=== PATIENT | female | born 1965 | race African-American/Black ===

== ENCOUNTER 2017-06-01 17:48 | Emergency (ER) | payer OTHER ==
[~2017-06-01] VITALS: Ht 170.2 cm; Wt 121.0 kg
[~2017-06-01 17:48] MED LIST: ASPI-1159 PO; CLON0.1T PO; GLUXL5 PO; ISOS1TAB PO; LOSA1TAB34 PO; METF500T4 PO; Metoprolol Tartrate PO; SITA25TA3 PO
[2017-06-01 23:02] LABS: BASOPHILS % 0.6 % (0.0-2.0); EOSINOPHILS % 1.8 % (0.0-5.0); HEMATOCRIT. 37.1 % (36.0-48.0); LYMPHOCYTES % 41.6 % (20.0-50.0); MEAN CORPUSCULAR HEMOGLOBIN 23.9 pg (28.0-32.0); MEAN CORPUSCULAR VOLUME 73.8 fL (81.0-99.0); MEAN PLATELET VOLUME 9.2 fl (7.4-10.4); MONOCYTES % 7.9 % (2.0-8.0); NEUTROPHILS % 48.1 % (40.0-76.0); PLATELET 212 x1000/uL (130-400); RED BLOOD CELL COUNT 5.04 mill/uL (4.2-5.4); RED CELL DISTRIBUTION WIDTH 16.6 % (11.6-14.6)
[2017-06-01 23:04] LABS: CHLORIDE 103 mEq/L (98-107)
[2017-06-01 23:08] LABS: PARTIAL THROMBOPLASTIN TIME 23.6 sec (23.4-31.0); PROTHROMBIN TIME 9.9 sec (9.4-11.6)
[2017-06-01 23:11] LABS: CARBON DIOXIDE 27 mEq/L (21-32)
[2017-06-01 23:15] LABS: TROPONIN I < 0.02 ng/mL (0.00-0.04)
[2017-06-02] MEDS ORDERED: INSULIN REGULAR (HUMULIN R) UD 100 UNITS/ML SYR IV ONE (00:45)
[2017-06-02 01:23] LABS: CLARITY URINE CLEAR (CLEAR); COLOR URINE YELLOW (YELLOW); GLUCOSE URINE 3+ (NEGATIVE); KETONES URINE NEGATIVE (NEGATIVE); LEUKOCYTE ESTERASE URINE 1+ (NEGATIVE); NITRITE URINE NEGATIVE (NEGATIVE); OCCULT BLOOD URINE NEGATIVE (NEGATIVE); PROTEIN URINE NEGATIVE (NEGATIVE); SPECIFIC GRAVITY URINE 1.034 (1.005-1.030); UROBILINOGEN URINE 0.2 E.U./dL (0.2-1.0)
[2017-06-02] MEDS ORDERED: INSULIN REGULAR (HUMULIN R) UD 100 UNITS/ML SYR SUBCUT SCH (01:45)
[2017-06-02 03:32] VITALS: BP 135/89
== END 2017-06-02 05:15 | disposition home or self-care (01) ==
LOC: ER 17:48
DX: E11.65 Type 2 diabetes mellitus with hyperglycemia (principal); R07.9 Chest pain, unspecified; E78.00 Pure hypercholesterolemia, unspecified; I10 Essential (primary) hypertension; Z79.82 Long term (current) use of aspirin; Z88.0 Allergy status to penicillin; Z98.890 Other specified postprocedural states
CPT/HCPCS: 36415; 71010; 80053; 81001; 82962; 83690; 84484; 85025; 85610; 85730; 93005; 96372; 99285; J1815

== ENCOUNTER 2017-06-03 11:50 | Emergency (ER) | payer OTHER ==
[~2017-06-03] VITALS: Ht 170.2 cm; Wt 130.0 kg
[2017-06-03] MEDS ORDERED: SODIUM CHLORIDE 0.9% 1,000 ML IV ONE ×2 (13:00)
[2017-06-03] MEDS ORDERED: LORAZEPAM 2MG/ML CPJ IM ONE (13:15)
[2017-06-03 13:17] LABS: BASOPHILS % 0.7 % (0.0-2.0); EOSINOPHILS % 1.3 % (0.0-5.0); HEMATOCRIT. 39.2 % (36.0-48.0); HEMOGLOBIN. 12.7 g/dL (12.0-16.0); LYMPHOCYTES % 45.1 % (20.0-50.0); MEAN CORPUSCULAR VOLUME 74.1 fL (81.0-99.0); MEAN PLATELET VOLUME 8.5 fl (7.4-10.4); MONOCYTES % 7.2 % (2.0-8.0); NEUTROPHILS % 45.7 % (40.0-76.0); PLATELET 219 x1000/uL (130-400); RED BLOOD CELL COUNT 5.29 mill/uL (4.2-5.4); RED CELL DISTRIBUTION WIDTH 16.6 % (11.6-14.6)
[2017-06-03 13:28] LABS: CARBON DIOXIDE 28 mEq/L (21-32); CHLORIDE 103 mEq/L (98-107)
[2017-06-03 18:01] VITALS: BP 155/87
== END 2017-06-03 18:07 | disposition home or self-care (01) ==
LOC: ER 11:50
DX: E11.65 Type 2 diabetes mellitus with hyperglycemia (principal); I10 Essential (primary) hypertension; Z88.0 Allergy status to penicillin; Z79.82 Long term (current) use of aspirin
CPT/HCPCS: 36415; 80053; 82962; 85025; 96360; 96361; 99285; Z7610; J7030

== ENCOUNTER 2018-02-07 11:27 | Emergency (ER) | payer OTHER ==
[~2018-02-07] VITALS: Ht 170.2 cm; Wt 119.0 kg
[2018-02-07 12:31] LABS: BASOPHILS % 0.6 % (0.0-2.0); EOSINOPHILS % 1.2 % (0.0-5.0); HEMATOCRIT. 37.9 % (36.0-48.0); HEMOGLOBIN. 12.4 g/dL (12.0-16.0); LYMPHOCYTES % 29.4 % (20.0-50.0); MEAN CORPUSCULAR HEMOGLOBIN 24.5 pg (28.0-32.0); MEAN CORPUSCULAR VOLUME 74.8 fL (81.0-99.0); MEAN PLATELET VOLUME 8.8 fl (7.4-10.4); MONOCYTES % 7.4 % (2.0-8.0); NEUTROPHILS % 61.4 % (40.0-76.0); PLATELET 230 x1000/uL (130-400); RED BLOOD CELL COUNT 5.06 mill/uL (4.2-5.4)
[2018-02-07 12:36] LABS: CHLORIDE 102 mEq/L (98-107)
[2018-02-07 12:42] LABS: INR 0.9; PARTIAL THROMBOPLASTIN TIME 24.9 sec (23.4-31.0); PROTHROMBIN TIME 9.9 sec (9.4-11.6)
[2018-02-07 16:17] VITALS: BP 168/80
== END 2018-02-07 16:47 | disposition home or self-care (01) ==
LOC: ER 16:25
DX: S80.11XA Contusion of right lower leg, initial encounter (principal); E11.65 Type 2 diabetes mellitus with hyperglycemia; R22.31 Localized swelling, mass and lump, right upper limb; R07.89 Other chest pain; E88.09 Other disorders of plasma-protein metabolism, not elsewhere classified; I11.0 Hypertensive heart disease with heart failure; I50.9 Heart failure, unspecified; Z79.82 Long term (current) use of aspirin; Z79.84 Long term (current) use of oral hypoglycemic drugs; Z98.890 Other specified postprocedural states; X58.XXXA Exposure to other specified factors, initial encounter; Y93.89 Activity, other specified; Y92.098 Other place in other non-institutional residence as the place of occurrence of the external cause
CPT/HCPCS: 36415; 71045; 80053; 81025; 83690; 84484; 85025; 85610; 85730; 93005; 93971; 99285; Z7610

== ENCOUNTER 2018-06-30 09:26 | Emergency (ER) | payer OTHER ==
[~2018-06-30] VITALS: Ht 170.2 cm; Wt 120.0 kg
[~2018-06-30 09:26] MED LIST changes: -METF500T4 PO; +METF500T6 PO
[2018-06-30] MEDS ORDERED: CLONIDINE 0.1MG TABLET PO ONE (10:45)
[2018-06-30] MEDS ORDERED: ACETAMINOPHEN WITH CODEINE 300/30MG TABLET PO ONE (10:45)
[2018-06-30 12:02] VITALS: BP 161/74
== END 2018-06-30 12:03 | disposition home or self-care (01) ==
LOC: ER 09:26
DX: M79.671 Pain in right foot (principal); I11.0 Hypertensive heart disease with heart failure; I50.9 Heart failure, unspecified; E11.9 Type 2 diabetes mellitus without complications; Z98.890 Other specified postprocedural states; Z79.82 Long term (current) use of aspirin; Z79.899 Other long term (current) drug therapy; Z88.0 Allergy status to penicillin
CPT/HCPCS: 73630; 99284; Z7610

== ENCOUNTER 2018-10-04 01:24 | Emergency (ER) | payer OTHER ==
[~2018-10-04] VITALS: Ht 170.2 cm; Wt 119.1 kg
[~2018-10-04 01:24] MED LIST changes: +METF-414 PO; -METF500T6 PO
[2018-10-04 03:02] LABS: HEMATOCRIT 39.4 % (36.0-48.0); HEMOGLOBIN 12.5 g/dL (12.0-16.0); MEAN CORPUSCULAR HEMOGLOBIN 23.6 pg (28.0-32.0); MEAN CORPUSCULAR VOLUME 74.7 fL (81.0-99.0); PLATELET 222 x1000/uL (130-400); RED BLOOD CELL COUNT 5.27 mill/uL (4.2-5.4); RED CELL DISTRIBUTION WIDTH 16.6 % (11.6-14.6)
[2018-10-04 03:06] LABS: CHLORIDE 102 mEq/L (98-107)
[2018-10-04 03:16] LABS: BETA HYDROXYBUTYRATE 0.1 mMol/L (0.0-0.3)
[2018-10-04] MEDS ORDERED: KETOROLAC 60MG/2ML VIAL IM ONE (04:15)
[2018-10-04] MEDS ORDERED: KETOROLAC 30MG/ML VIAL IV ONE (04:45)
[2018-10-04 04:51] VITALS: BP 144/81
== END 2018-10-04 04:53 | disposition home or self-care (01) ==
LOC: ER 01:24
DX: E11.65 Type 2 diabetes mellitus with hyperglycemia (principal); I16.0 Hypertensive urgency; I10 Essential (primary) hypertension; R51 Headache; Z98.890 Other specified postprocedural states; Z79.899 Other long term (current) drug therapy; Z88.0 Allergy status to penicillin
CPT/HCPCS: 36415; 80053; 82010; 82962; 84484; 85027; 93005; 96374; 99284; J1885

== ENCOUNTER 2018-12-13 08:50 | Emergency (ER) | payer OTHER ==
[~2018-12-13] VITALS: Ht 170.2 cm; Wt 117.0 kg
[2018-12-13 08:56] VITALS: BP 159/78
== END 2018-12-13 09:31 | disposition home or self-care (01) ==
LOC: ER 08:50
DX: H92.01 Otalgia, right ear (principal); R07.0 Pain in throat; E11.9 Type 2 diabetes mellitus without complications; I10 Essential (primary) hypertension; Z98.890 Other specified postprocedural states; Z88.0 Allergy status to penicillin; Z79.82 Long term (current) use of aspirin; Z79.899 Other long term (current) drug therapy
CPT/HCPCS: 99283

== ENCOUNTER 2018-12-19 12:56 | Emergency (ER) | payer OTHER ==
[~2018-12-19] VITALS: Ht 170.2 cm; Wt 118.0 kg
[2018-12-19] MEDS ORDERED: ONDANSETRON 4MG ODT PO STA (14:47)
[2018-12-19] MEDS ORDERED: MAGNESIUM/ALUMINUM HYDROXIDE/SIMETHICONE 30ML UDC PO STA (14:47)
[2018-12-19] MEDS ORDERED: FAMOTIDINE 20MG TABLET PO ONE (15:00)
[2018-12-19 15:15] VITALS: BP 146/86
== END 2018-12-19 15:15 | disposition home or self-care (01) ==
LOC: ER 12:56
DX: R13.10 Dysphagia, unspecified (principal); E78.00 Pure hypercholesterolemia, unspecified; E11.9 Type 2 diabetes mellitus without complications; I10 Essential (primary) hypertension; Z88.0 Allergy status to penicillin; Z90.89 Acquired absence of other organs
CPT/HCPCS: 93005; 99284; Q0162

== ENCOUNTER 2019-01-03 08:33 | Emergency (ER) | payer OTHER ==
[~2019-01-03] VITALS: Ht 170.2 cm; Wt 118.0 kg
[2019-01-03] MEDS ORDERED: KETOROLAC 30MG/ML VIAL IV STA (10:39)
[2019-01-03] MEDS ORDERED: VISCOUS LIDOCAINE 2% 15 ML UDC PO STA (10:39)
[2019-01-03] MEDS ORDERED: MAGNESIUM/ALUMINUM HYDROXIDE/SIMETHICONE 30ML UDC PO STA (10:39)
[2019-01-03] MEDS ORDERED: DEXAMETHASONE 10 MG/ML VIAL IV ONE (10:45)
[2019-01-03 10:59] LABS: BASOPHILS % 0.5 % (0.0-2.0); EOSINOPHILS % 1.5 % (0.0-5.0); HEMATOCRIT. 37.6 % (36.0-48.0); HEMOGLOBIN. 12.1 g/dL (12.0-16.0); LYMPHOCYTES % 32.3 % (20.0-50.0); MEAN CORPUSCULAR VOLUME 74.1 fL (81.0-99.0); MEAN PLATELET VOLUME 8.7 fl (7.4-10.4); MONOCYTES % 6.7 % (2.0-8.0); PLATELET 271 x1000/uL (130-400); RED BLOOD CELL COUNT 5.07 mill/uL (4.2-5.4); RED CELL DISTRIBUTION WIDTH 15.8 % (11.6-14.6)
[2019-01-03 11:01] LABS: CHLORIDE 106 mEq/L (98-107)
[2019-01-03 13:57] VITALS: BP 159/87
[2019-01-03] MEDS ORDERED: IOHEXOL-300 100 ML BOTTLE ONE (15:30)
== END 2019-01-03 14:34 | disposition home or self-care (01) ==
LOC: ER 08:33
DX: J02.0 Streptococcal pharyngitis (principal); I10 Essential (primary) hypertension; E11.65 Type 2 diabetes mellitus with hyperglycemia; E78.00 Pure hypercholesterolemia, unspecified; R59.1 Generalized enlarged lymph nodes; Z98.890 Other specified postprocedural states
CPT/HCPCS: 36415; 70491; 80053; 85025; 87430; 96374; 96375; 99284; J1100; J1885; Q9967

== ENCOUNTER 2019-02-01 10:26 | Emergency (ER) | payer OTHER ==
[~2019-02-01] VITALS: Ht 170.2 cm; Wt 118.0 kg
[2019-02-01] MEDS ORDERED: ASPIRIN 81MG TABLET PO ONE (12:00)
[2019-02-01 12:34] LABS: BASOPHILS % 0.5 % (0.0-2.0); EOSINOPHILS % 1.5 % (0.0-5.0); HEMATOCRIT. 35.8 % (36.0-48.0); HEMOGLOBIN. 11.3 g/dL (12.0-16.0); LYMPHOCYTES % 41.1 % (20.0-50.0); MEAN CORPUSCULAR HEMOGLOBIN 23.4 pg (28.0-32.0); MEAN CORPUSCULAR VOLUME 74.4 fL (81.0-99.0); MEAN PLATELET VOLUME 8.7 fl (7.4-10.4); MONOCYTES % 6.7 % (2.0-8.0); NEUTROPHILS % 50.2 % (40.0-76.0); PLATELET 261 x1000/uL (130-400); RED BLOOD CELL COUNT 4.81 mill/uL (4.2-5.4); RED CELL DISTRIBUTION WIDTH 16.5 % (11.6-14.6)
[2019-02-01 12:38] LABS: CHLORIDE 104 mEq/L (98-107)
[2019-02-01] MEDS ORDERED: NITROGLYCERIN 0.4MG TABLET SL SL ONE (13:45)
[2019-02-01 14:59] LABS: CLARITY URINE CLOUDY (CLEAR); COLOR URINE YELLOW (YELLOW); KETONES URINE NEGATIVE (NEGATIVE); LEUKOCYTE ESTERASE URINE 3+ (NEGATIVE); NITRITE URINE POSITIVE (NEGATIVE); OCCULT BLOOD URINE 1+ (NEGATIVE); PROTEIN URINE NEGATIVE (NEGATIVE); SPECIFIC GRAVITY URINE 1.017 (1.005-1.030); UROBILINOGEN URINE 0.2 E.U./dL (0.2-1.0)
[2019-02-01 15:19] LABS: *AMPHETAMINES SCREEN URINE NEGATIVE (NEGATIVE); *BARBITURATES SCREEN URINE NEGATIVE (NEGATIVE); *BENZODIAZEPINES SCREEN URINE NEGATIVE (NEGATIVE); *COCAINE SCREEN URINE NEGATIVE (NEGATIVE)
[2019-02-01 15:20] VITALS: BP 149/83
[2019-02-01 15:20] LABS: CANNABINOID URINE SCREEN NEGATIVE (NEGATIVE); METHADONE URINE SCREEN NEGATIVE (NEGATIVE); OPIATES URINE SCREEN NEGATIVE (NEGATIVE); PHENCYCLIDINE URINE SCREEN NEGATIVE (NEGATIVE)
[2019-02-01] MEDS ORDERED: CEFTRIAXONE 1 G PREMIX 50 ML IV ONE (17:00)
== END 2019-02-01 17:58 | disposition short-term general hospital (02) ==
LOC: ER 10:26 → CANBEDREQ 18:10
DX: R07.89 Other chest pain (principal); N39.0 Urinary tract infection, site not specified; E11.9 Type 2 diabetes mellitus without complications; E78.00 Pure hypercholesterolemia, unspecified; I10 Essential (primary) hypertension; Z98.890 Other specified postprocedural states; Z79.82 Long term (current) use of aspirin; Z79.899 Other long term (current) drug therapy; Z88.0 Allergy status to penicillin
CPT/HCPCS: 36415; 71045; 80053; 80305; 81003; 82962; 83880; 84484; 85025; 87077; 87086; 87186; 93005; 96374; 99285; J0696

== ENCOUNTER 2019-03-29 17:47 | Emergency (ER) | payer OTHER ==
[~2019-03-29] VITALS: Ht 170.2 cm; Wt 117.0 kg
[~2019-03-29 17:47] MED LIST changes: -ASPI-1159 PO; +ASPI-1393 PO
[2019-03-29] MEDS ORDERED: ACETAMINOPHEN 325MG TABLET PO ONE (18:45)
[2019-03-29 19:01] LABS: BASOPHILS % 0.7 % (0.0-2.0); EOSINOPHILS % 2.7 % (0.0-5.0); HEMATOCRIT. 38.2 % (36.0-48.0); HEMOGLOBIN. 12.2 g/dL (12.0-16.0); LYMPHOCYTES % 39.7 % (20.0-50.0); MEAN CORPUSCULAR HEMOGLOBIN 23.8 pg (28.0-32.0); MEAN CORPUSCULAR VOLUME 74.9 fL (81.0-99.0); MEAN PLATELET VOLUME 8.5 fl (7.4-10.4); MONOCYTES % 8.1 % (2.0-8.0); NEUTROPHILS % 48.8 % (40.0-76.0); PLATELET 244 x1000/uL (130-400); RED CELL DISTRIBUTION WIDTH 16.2 % (11.6-14.6)
[2019-03-29 19:06] LABS: CHLORIDE 103 mEq/L (98-107); INR 0.9; PROTHROMBIN TIME 9.6 sec (9.6-11.0)
[2019-03-29 19:14] LABS: CREATINE KINASE 91 IU/L (26-192)
[2019-03-29 19:26] LABS: CLARITY URINE TURBID (CLEAR); COLOR URINE YELLOW (YELLOW); KETONES URINE NEGATIVE (NEGATIVE); LEUKOCYTE ESTERASE URINE 3+ (NEGATIVE); NITRITE URINE POSITIVE (NEGATIVE); OCCULT BLOOD URINE 1+ (NEGATIVE); PROTEIN URINE NEGATIVE (NEGATIVE); UROBILINOGEN URINE 0.2 E.U./dL (0.2-1.0)
[2019-03-29 21:08] VITALS: BP 176/89
== END 2019-03-29 21:10 | disposition home or self-care (01) ==
LOC: ER 17:47
DX: N39.0 Urinary tract infection, site not specified (principal); R59.0 Localized enlarged lymph nodes; M79.605 Pain in left leg; E11.65 Type 2 diabetes mellitus with hyperglycemia; I10 Essential (primary) hypertension; E78.00 Pure hypercholesterolemia, unspecified; I20.9 Angina pectoris, unspecified; Z88.0 Allergy status to penicillin; Z79.82 Long term (current) use of aspirin
CPT/HCPCS: 36415; 82550; 84443; 93005; 93971; 99284

== ENCOUNTER 2019-05-17 06:46 | Emergency (ER) | payer OTHER ==
[~2019-05-17] VITALS: Ht 170.2 cm; Wt 116.0 kg
[2019-05-17] MEDS ORDERED: HYDRALAZINE 20MG/ML VIAL IV ONE (08:15)
[2019-05-17 08:40] LABS: BASOPHILS % 1.5 % (0.0-2.0); EOSINOPHILS % 2.7 % (0.0-5.0); HEMATOCRIT. 37.1 % (36.0-48.0); HEMOGLOBIN. 11.9 g/dL (12.0-16.0); MEAN CORPUSCULAR HEMOGLOBIN 24.2 pg (28.0-32.0); MEAN CORPUSCULAR VOLUME 75.4 fL (81.0-99.0); MONOCYTES % 8.3 % (2.0-8.0); NEUTROPHILS % 49.5 % (40.0-76.0); PLATELET 251 x1000/uL (130-400); RED BLOOD CELL COUNT 4.92 mill/uL (4.2-5.4); RED CELL DISTRIBUTION WIDTH 16.6 % (11.6-14.6)
[2019-05-17 08:44] LABS: CHLORIDE 105 mEq/L (98-107)
[2019-05-17 11:30] VITALS: BP 196/88
[2019-05-17] MEDS ORDERED: IOHEXOL-350 100 ML BOTTLE ONE (12:05)
== END 2019-05-17 11:30 | disposition short-term general hospital (02) ==
LOC: ER 06:46
DX: R42 Dizziness and giddiness (principal); E11.9 Type 2 diabetes mellitus without complications; I10 Essential (primary) hypertension; Z88.0 Allergy status to penicillin; Z79.82 Long term (current) use of aspirin
CPT/HCPCS: 36415; 70496; 70498; 71045; 80053; 82962; 84484; 85025; 93005; 96374; 99285; J0360; Q9967

== ENCOUNTER 2019-10-12 13:27 | Emergency (ER) | payer OTHER ==
[~2019-10-12] VITALS: Ht 170.2 cm; Wt 109.0 kg
[~2019-10-12 13:27] MED LIST changes: -ASPI-1393 PO; +ASPI-1497 PO
[2019-10-12] MEDS ORDERED: SODIUM CHLORIDE 0.9% 1,000 ML IV ONE ×2 (16:37)
[2019-10-12] MEDS ORDERED: PANT40TA4 PO (16:39)
[2019-10-12] MEDS ORDERED: CRES10 PO (16:39)
[2019-10-12] MEDS ORDERED: OXYB5TAB17 PO (16:39)
[2019-10-12] MEDS ORDERED: NIFE-33 PO (16:43)
[2019-10-12] MEDS ORDERED: CLON-457 PO (16:43)
[2019-10-12] MEDS ORDERED: METO-396 PO (16:43)
[2019-10-12] MEDS ORDERED: METF-815 PO (16:43)
[2019-10-12] MEDS ORDERED: INSULIN REGULAR (HUMULIN R) 300UNITS/3ML SUBCUT ONE ×2 (16:45→18:30)
[2019-10-12 17:03] LABS: BASOPHILS % 0.5 % (0.0-2.0); EOSINOPHILS % 1.3 % (0.0-5.0); HEMATOCRIT. 38.9 % (36.0-48.0); HEMOGLOBIN. 12.6 g/dL (12.0-16.0); LYMPHOCYTES % 40.5 % (20.0-50.0); MEAN CORPUSCULAR HEMOGLOBIN 24.2 pg (28.0-32.0); MEAN CORPUSCULAR VOLUME 74.4 fL (81.0-99.0); MEAN PLATELET VOLUME 8.5 fl (7.4-10.4); MONOCYTES % 6.9 % (2.0-8.0); NEUTROPHILS % 50.8 % (40.0-76.0); PLATELET 248 x1000/uL (130-400); RED BLOOD CELL COUNT 5.23 mill/uL (4.2-5.4); RED CELL DISTRIBUTION WIDTH 15.8 % (11.6-14.6)
[2019-10-12 17:05] LABS: CLARITY URINE CLOUDY (CLEAR); COLOR URINE YELLOW (YELLOW); KETONES URINE NEGATIVE (NEGATIVE); LEUKOCYTE ESTERASE URINE NEGATIVE (NEGATIVE); NITRITE URINE NEGATIVE (NEGATIVE); OCCULT BLOOD URINE NEGATIVE (NEGATIVE); PROTEIN URINE NEGATIVE (NEGATIVE); SPECIFIC GRAVITY URINE 1.037 (1.005-1.030); UROBILINOGEN URINE 0.2 E.U./dL (0.2-1.0)
[2019-10-12 17:06] LABS: CHLORIDE 102 mEq/L (98-107)
[2019-10-12 17:16] LABS: BETA HYDROXYBUTYRATE 0.1 mMol/L (0.0-0.3)
[2019-10-12 20:30] VITALS: BP 138/80
== END 2019-10-12 20:40 | disposition home or self-care (01) ==
LOC: ER 13:27
DX: E11.65 Type 2 diabetes mellitus with hyperglycemia (principal); N39.0 Urinary tract infection, site not specified; B37.9 Candidiasis, unspecified; I10 Essential (primary) hypertension; E78.00 Pure hypercholesterolemia, unspecified; Z79.4 Long term (current) use of insulin; Z88.0 Allergy status to penicillin; Z79.82 Long term (current) use of aspirin
CPT/HCPCS: 36415; 80053; 81003; 82010; 82962; 85025; 87086; 96360; 96361; 96372; 99283; J1815; J7030

== ENCOUNTER 2021-05-02 09:42 | Emergency (ER) | payer OTHER ==
[~2021-05-02] VITALS: Ht 170.2 cm; Wt 100.0 kg
[~2021-05-02 09:42] MED LIST changes: +CLON-457 PO; +CRES10 PO; +METF-873 PO; +METO-396 PO; +NIFE-33 PO; +OXYB5TAB17 PO; +PANT40TA51 PO
[2021-05-02] MEDS ORDERED: AZIT250T12 MT (13:08)
[2021-05-02] MEDS ORDERED: ALBU2TAB4 PO (13:08)
[2021-05-02] MEDS ORDERED: P20 MT (13:08)
[2021-05-02 13:44] VITALS: BP 138/70
== END 2021-05-02 13:48 | disposition home or self-care (01) ==
LOC: ER 09:42
DX: U07.1 COVID-19 (principal); J12.82 Pneumonia due to coronavirus disease 2019; E11.9 Type 2 diabetes mellitus without complications; E78.00 Pure hypercholesterolemia, unspecified; I10 Essential (primary) hypertension; Z98.890 Other specified postprocedural states; Z79.899 Other long term (current) drug therapy; Z88.0 Allergy status to penicillin
CPT/HCPCS: 71045; 82962; 99283

== ENCOUNTER 2021-05-06 09:44 | Emergency (ER) | payer OTHER ==
[~2021-05-06] VITALS: Ht 170.2 cm; Wt 100.0 kg
[~2021-05-06 09:44] MED LIST changes: +ALBU2TAB4 PO; +AZIT250T12 MT; +P20 MT
[2021-05-06 10:27] VITALS: BP 136/80
[2021-05-06] MEDS ORDERED: IBUP-2029 MT (10:57)
[2021-05-06] MEDS ORDERED: BENZ-16 MT (10:58)
== END 2021-05-06 11:08 | disposition home or self-care (01) ==
LOC: ER 09:44
DX: R06.02 Shortness of breath (principal); I10 Essential (primary) hypertension; E11.9 Type 2 diabetes mellitus without complications; E78.00 Pure hypercholesterolemia, unspecified; Z88.0 Allergy status to penicillin; Z79.899 Other long term (current) drug therapy; Z98.890 Other specified postprocedural states
CPT/HCPCS: 71045; 93005; 99283; Z7610

== ENCOUNTER 2021-05-16 10:02 | Emergency (ER) | payer OTHER ==
[~2021-05-16] VITALS: Ht 170.2 cm; Wt 100.0 kg
[~2021-05-16 10:02] MED LIST changes: +BENZ-16 MT; +IBUP-2029 MT
[2021-05-16 10:32] VITALS: BP 153/83
== END 2021-05-16 14:44 | disposition home or self-care (01) ==
LOC: ER 10:02
DX: R43.9 Unspecified disturbances of smell and taste (principal); E11.9 Type 2 diabetes mellitus without complications; E78.00 Pure hypercholesterolemia, unspecified; I10 Essential (primary) hypertension; Z88.0 Allergy status to penicillin; Z79.899 Other long term (current) drug therapy; Z98.890 Other specified postprocedural states; Z86.16 Personal history of COVID-19
CPT/HCPCS: 71045; 99283

== ENCOUNTER 2021-10-19 18:37 | Emergency (ER) | payer OTHER ==
[~2021-10-19] VITALS: Ht 170.2 cm; Wt 100.0 kg
[2021-10-19 22:42] LABS: BASOPHILS % 0.6 % (0.0-2.0); EOSINOPHILS % 1.1 % (0.0-5.0); HEMATOCRIT. 42.3 % (36.0-48.0); HEMOGLOBIN. 13.4 g/dL (12.0-16.0); LYMPHOCYTES % 39.2 % (20.0-50.0); MEAN CORPUSCULAR VOLUME 72.8 fL (81.0-99.0); MONOCYTES % 5.8 % (2.0-8.0); NEUTROPHILS % 53.3 % (40.0-76.0); PLATELET 225 x1000/uL (130-400); RED BLOOD CELL COUNT 5.81 mill/uL (4.2-5.4); RED CELL DISTRIBUTION WIDTH 15.8 % (11.6-14.6)
[2021-10-19 22:48] LABS: CHLORIDE 101 mEq/L (98-107)
[2021-10-19 22:58] LABS: BETA HYDROXYBUTYRATE 0.2 mMol/L (0.0-0.3)
[2021-10-19] MEDS ORDERED: INSULIN LISPRO 100 UNITS/ML SUBCUT NR (23:15)
[2021-10-20 01:29] LABS: CLARITY URINE CLOUDY (CLEAR); COLOR URINE YELLOW (YELLOW); KETONES URINE TRACE (NEGATIVE); LEUKOCYTE ESTERASE URINE NEGATIVE (NEGATIVE); NITRITE URINE NEGATIVE (NEGATIVE); OCCULT BLOOD URINE NEGATIVE (NEGATIVE); PROTEIN URINE TRACE (NEGATIVE); SPECIFIC GRAVITY URINE 1.034 (1.005-1.030); UROBILINOGEN URINE 0.2 E.U./dL (0.2-1.0)
[2021-10-20] MEDS ORDERED: METF-873 MT (02:04)
[2021-10-20 02:21] VITALS: BP 176/81
== END 2021-10-20 02:30 | disposition home or self-care (01) ==
LOC: ER 18:37
DX: E11.65 Type 2 diabetes mellitus with hyperglycemia (principal); I10 Essential (primary) hypertension; E78.00 Pure hypercholesterolemia, unspecified; Z98.890 Other specified postprocedural states; Z79.84 Long term (current) use of oral hypoglycemic drugs; Z79.82 Long term (current) use of aspirin; Z88.0 Allergy status to penicillin
CPT/HCPCS: 36415; 80053; 81003; 82010; 82962; 83690; 85025; 87086; 96372; 99283; J1815

== ENCOUNTER 2022-02-02 20:14 | Emergency (ER) | payer OTHER ==
[~2022-02-02] VITALS: Ht 170.2 cm; Wt 98.0 kg
[~2022-02-02 20:14] MED LIST changes: +METF-873 MT
[2022-02-02] MEDS ORDERED: ASPIRIN 81MG TABLET PO ONE (21:15)
[2022-02-02] MEDS ORDERED: NITROGLYCERIN 0.4MG TABLET SL SL PRN (21:15)
[2022-02-02 22:35] LABS: BASOPHILS % 0.6 % (0.0-2.0); EOSINOPHILS % 1.1 % (0.0-5.0); HEMATOCRIT. 36.9 % (36.0-48.0); LYMPHOCYTES % 30.9 % (20.0-50.0); MEAN PLATELET VOLUME 8.4 fl (7.4-10.4); NEUTROPHILS % 61.4 % (40.0-76.0); PLATELET 232 x1000/uL (130-400); RED BLOOD CELL COUNT 4.98 mill/uL (4.2-5.4); RED CELL DISTRIBUTION WIDTH 16.2 % (11.6-14.6)
[2022-02-02 22:46] LABS: CHLORIDE 109 mEq/L (98-107)
[2022-02-02] MEDS ORDERED: KETOROLAC 30MG/ML VIAL IV ONE (23:15)
[2022-02-02] MEDS ORDERED: ASPIRIN 325MG TABLET PO SCH (23:45)
[2022-02-03] MEDS ORDERED: IBUP-2029 MT (02:27)
[2022-02-03] MEDS ORDERED: BACL-141 MT (02:27)
[2022-02-03 02:30] VITALS: BP 146/82
== END 2022-02-03 02:56 | disposition home or self-care (01) ==
LOC: ER 20:14
DX: S90.32XA Contusion of left foot, initial encounter (principal); M94.0 Chondrocostal junction syndrome [Tietze]; E78.00 Pure hypercholesterolemia, unspecified; E11.9 Type 2 diabetes mellitus without complications; Z88.6 Allergy status to analgesic agent; Z79.899 Other long term (current) drug therapy; Z88.0 Allergy status to penicillin; Z98.890 Other specified postprocedural states; X58.XXXA Exposure to other specified factors, initial encounter; Y93.89 Activity, other specified; Y92.89 Other specified places as the place of occurrence of the external cause; Y99.8 Other external cause status
CPT/HCPCS: 36415; 71045; 73630; 80053; 83880; 84484; 85025; 93005; 99285; J1885

== ENCOUNTER 2022-09-01 11:34 | Emergency (ER) | payer MEDICAID, OTHER ==
[~2022-09-01] VITALS: Ht 170.2 cm; Wt 93.0 kg
[~2022-09-01 11:34] MED LIST changes: +BACL-141 MT; -ISOS1TAB PO; +ISOS1TAB2 PO
[2022-09-01 11:44] VITALS: BP 166/84
== END 2022-09-01 17:11 | disposition left against medical advice (07) ==
LOC: ER 11:34
DX: Z53.21 Procedure and treatment not carried out due to patient leaving prior to being seen by health care provider (principal); I49.9 Cardiac arrhythmia, unspecified
CPT/HCPCS: 82962; 93005

== ENCOUNTER 2023-04-09 09:06 | Emergency (ER) | payer MEDICAID, OTHER ==
[~2023-04-09] VITALS: Ht 170.2 cm; Wt 97.8 kg
[~2023-04-09 09:06] MED LIST changes: +ALBU2TAB17 PO; -ALBU2TAB4 PO
[2023-04-09] MEDS ORDERED: IBUPROFEN 600MG TABLET PO NR (10:30)
[2023-04-09] MEDS ORDERED: ACET-2708 MT (10:32)
[2023-04-09 11:23] VITALS: BP 164/72; PULSE 58; RESP 18; TEMP 98.4
== END 2023-04-09 11:25 | disposition home or self-care (01) ==
LOC: ER 09:06
DX: S92.911A Unspecified fracture of right toe(s), initial encounter for closed fracture (principal); I10 Essential (primary) hypertension; E11.9 Type 2 diabetes mellitus without complications; E78.00 Pure hypercholesterolemia, unspecified; Z88.0 Allergy status to penicillin; Z79.899 Other long term (current) drug therapy; Z98.890 Other specified postprocedural states; W23.0XXA Caught, crushed, jammed, or pinched between moving objects, initial encounter; Y93.89 Activity, other specified; Y92.89 Other specified places as the place of occurrence of the external cause; Y99.8 Other external cause status
CPT/HCPCS: 73630; 81025; 99283

== ENCOUNTER 2023-12-06 20:57 | Emergency (ER) | payer MEDICAID ==
[~2023-12-06] VITALS: Ht 170.2 cm; Wt 93.0 kg
[~2023-12-06 20:57] MED LIST changes: +ACET-2708 MT; -CLON-457 PO; +CLON-493 PO; +EMPA10TA PO; -IBUP-2029 MT; +LEVO750T68 PO; -METF-873 MT; +METR-167 MT; +MIRA25TA PO; +OXYB-52 PO; -OXYB5TAB17 PO; -P20 MT
[2023-12-06 21:16] VITALS: TEMP 98.3; O2SAT 99
[2023-12-07] MEDS ORDERED: LIDO700A15 TP (00:19)
[2023-12-07] MEDS ORDERED: NAPR-1176 MT (00:19)
[2023-12-07] MEDS: ACETAMINOPHEN 325MG TABLET PO ONE (00:25)
[2023-12-07 00:40] VITALS: BP 107/61; PULSE 68; RESP 16
[2023-12-07] MEDS: KETOROLAC 15MG/ML VIAL IM ONE (00:40)
== END 2023-12-07 03:57 | disposition home or self-care (01) ==
LOC: ER 20:57
DX: I80.3 Phlebitis and thrombophlebitis of lower extremities, unspecified (principal); E11.9 Type 2 diabetes mellitus without complications; E78.00 Pure hypercholesterolemia, unspecified; I10 Essential (primary) hypertension; Z98.890 Other specified postprocedural states; Z79.899 Other long term (current) drug therapy
CPT/HCPCS: 93970; 93971; 99284

== ENCOUNTER 2024-03-15 03:10 | Emergency (ER) | payer MEDICAID, OTHER ==
[~2024-03-15] VITALS: Ht 170.2 cm; Wt 91.0 kg
[~2024-03-15 03:10] MED LIST changes: +LIDO700A15 TP; +NAPR-1176 MT
[2024-03-15 03:40] VITALS: O2SAT 98
[2024-03-15 05:12] VITALS: BP 97/78; TEMP 98.4
[2024-03-15 06:24] VITALS: PULSE 88; RESP 18
[2024-03-15] MEDS: ALBUTEROL (0.083%) 2.5MG/3ML NEB HHN STA (06:26)
[2024-03-15] MEDS ORDERED: ALBU6.7H15 INH (06:34)
[2024-03-15] MEDS ORDERED: TOPUD PO (06:34)
[2024-03-15] MEDS ORDERED: TUSSL PO (06:43)
== END 2024-03-15 06:45 | disposition home or self-care (01) ==
LOC: ER 03:10
DX: B34.9 Viral infection, unspecified (principal); E11.9 Type 2 diabetes mellitus without complications; Z98.890 Other specified postprocedural states; Z88.0 Allergy status to penicillin; Z20.822 Contact with and (suspected) exposure to COVID-19
CPT/HCPCS: 71045; 99284; 87426; Z7610 ×4

== ENCOUNTER 2024-08-13 09:47 | Emergency (ER) | payer OTHER ==
[~2024-08-13] VITALS: Ht 170.2 cm; Wt 88.1 kg
[~2024-08-13 09:47] MED LIST changes: +ALBU6.7H15 INH; +TOPUD PO; +TUSSL PO
[2024-08-13 09:51] VITALS: BP 131/75; O2SAT 100
[2024-08-13] MEDS ORDERED: CLIN-116 MT (10:20)
[2024-08-13 10:30] VITALS: PULSE 52; RESP 16; TEMP 36.83628; O2SAT 100
[2024-08-13] MEDS ORDERED: METR-167 MT (10:39)
== END 2024-08-13 10:35 | disposition home or self-care (01) ==
LOC: ER 10:35
DX: L97.818 Non-pressure chronic ulcer of other part of right lower leg with other specified severity (principal); L03.115 Cellulitis of right lower limb; E11.9 Type 2 diabetes mellitus without complications; Z79.899 Other long term (current) drug therapy; Z98.890 Other specified postprocedural states; Z88.0 Allergy status to penicillin
CPT/HCPCS: 99283

== ENCOUNTER 2025-02-06 11:07 | Emergency (ER) | payer OTHER ==
[~2025-02-06] VITALS: Ht 170.2 cm; Wt 87.0 kg
[~2025-02-06 11:07] MED LIST changes: -ACET-2708 MT; -ALBU2TAB17 PO; -ALBU6.7H15 INH; -AZIT250T12 MT; -BACL-141 MT; -BENZ-16 MT; -CLON-493 PO; -CLON0.1T PO; -CRES10 PO; -EMPA10TA PO; +EMPA25TA PO; +EZET10TA81 PO; -GLUXL5 PO; -LEVO750T68 PO; -LIDO700A15 TP; +LIP40 PO; -LOSA1TAB34 PO; -METF-414 PO; -METF-873 PO; -METO-396 PO; -METR-167 MT; -MIRA25TA PO; -NAPR-1176 MT; -NIFE-33 PO; +PROT40 MT; +SITA1TAB2 PO; -SITA25TA3 PO; -TOPUD PO; -TUSSL PO
[2025-02-06 11:14] VITALS: O2SAT 100
[2025-02-06 14:08] LABS: BASOPHILS % 0.8 % (0.0-2.0); DIFFERENTIAL COMMENT 0; EOSINOPHILS % 1.5 % (0.0-5.0); HEMOGLOBIN. 11.8 g/dL (12.0-16.0); LYMPHOCYTES % 31.9 % (20.0-50.0); MEAN CORPUSCULAR HEMOGLOBIN 23.7 pg (28.0-32.0); MEAN CORPUSCULAR HGB CONC 31.9 g/dL (31.0-37.0); MEAN CORPUSCULAR VOLUME 74.2 fL (81.0-99.0); MEAN PLATELET VOLUME 8.5 fl (7.4-10.4); MONOCYTES % 8.8 % (2.0-8.0); PLATELET 215 x1000/uL (130-400); RED BLOOD CELL COUNT 4.99 mill/uL (4.2-5.4); RED CELL DISTRIBUTION WIDTH 17.3 % (11.6-14.6); WHITE BLOOD COUNT 6.2 x1000/uL (4.5-11.0)
[2025-02-06 14:15] LABS: CHLORIDE 106 mEq/L (98-107); SODIUM 140 mEq/L (136-145)
[2025-02-06 14:16] LABS: CARBON DIOXIDE 26 mEq/L (21-32)
[2025-02-06 14:17] LABS: CALCIUM 8.4 mg/dL (8.7-10.4)
[2025-02-06 14:21] LABS: GLUCOSE 177 mg/dL (70-105); UREA NITROGEN BLOOD 16 mg/dL (9-23)
[2025-02-06] MEDS ORDERED: AZIT500T8 MT (14:34)
[2025-02-06] MEDS ORDERED: CEFP200T13 MT (14:34)
[2025-02-06] MEDS ORDERED: BENZ100C86 MT (14:42)
[2025-02-06 14:52] VITALS: BP 150/70; PULSE 71; RESP 14; TEMP 37; O2SAT 100
== END 2025-02-06 15:01 | disposition home or self-care (01) ==
LOC: ER 11:07
DX: J18.9 Pneumonia, unspecified organism (principal); E11.9 Type 2 diabetes mellitus without complications; I10 Essential (primary) hypertension; F10.90 Alcohol use, unspecified, uncomplicated; Z79.82 Long term (current) use of aspirin; Z79.84 Long term (current) use of oral hypoglycemic drugs; Z79.899 Other long term (current) drug therapy; Z88.0 Allergy status to penicillin; Y90.9 Presence of alcohol in blood, level not specified
CPT/HCPCS: 36415; 71045; 80048; 85025; 99284

== ENCOUNTER 2025-08-09 08:20 | Emergency (ER) | payer OTHER ==
[~2025-08-09] VITALS: Ht 172.7 cm; Wt 91.0 kg
[~2025-08-09 08:20] MED LIST changes: +ALBU18HF2 IH; +BECL10.6 INH; +BENZ100C86 MT; +LEVO750T68 MT; -PANT40TA51 PO; +PRED10TA MT
[2025-08-09 08:29] VITALS: TEMP 36.8; O2SAT 100
[2025-08-09 08:55] LABS: BASOPHILS % 0.7 % (0.0-2.0); EOSINOPHILS % 2.1 % (0.0-5.0); HEMATOCRIT. 38.6 % (36.0-48.0); HEMOGLOBIN. 12.0 g/dL (12.0-16.0); LYMPHOCYTES % 32.6 % (20.0-50.0); MEAN PLATELET VOLUME 8.5 fl (7.4-10.4); MONOCYTES % 8.5 % (2.0-8.0); NEUTROPHILS % 56.1 % (40.0-76.0); PLATELET 206 x1000/uL (130-400); RED BLOOD CELL COUNT 5.20 mill/uL (4.2-5.4); RED CELL DISTRIBUTION WIDTH 16.7 % (11.6-14.6)
[2025-08-09 09:12] LABS: UREA NITROGEN BLOOD 12 mg/dL (9-23)
[2025-08-09 09:13] LABS: CREATININE 0.5 mg/dL (0.6-1.0); TROPONIN I HIGH SENSITIVITY 16 ng/L (3.0-34)
[2025-08-09 09:51] VITALS: BP 144/72; PULSE 60; RESP 18; O2SAT 100
== END 2025-08-09 09:57 | disposition home or self-care (01) ==
LOC: ER 08:20
DX: R07.89 Other chest pain (principal); E11.9 Type 2 diabetes mellitus without complications; I10 Essential (primary) hypertension; Z79.899 Other long term (current) drug therapy; Z88.0 Allergy status to penicillin
CPT/HCPCS: 36415; 71045; 80048; 84484; 85025; 93005; 99285

== ENCOUNTER 2025-09-13 10:21 | Emergency (ER) | payer OTHER ==
[~2025-09-13] VITALS: Ht 167.6 cm; Wt 91.0 kg
[2025-09-13 10:40] VITALS: O2SAT 100
[2025-09-13 11:05] LABS: CLARITY URINE CLEAR (CLEAR); COLOR URINE YELLOW (YELLOW); GLUCOSE URINE 3+ (NEGATIVE); KETONES URINE NEGATIVE (NEGATIVE); LEUKOCYTE ESTERASE URINE TRACE (NEGATIVE); NITRITE URINE NEGATIVE (NEGATIVE); OCCULT BLOOD URINE NEGATIVE (NEGATIVE); PH URINE 5.0 (4.5-8.0); PROTEIN URINE NEGATIVE (NEGATIVE); SPECIFIC GRAVITY URINE 1.039 (1.005-1.030); UROBILINOGEN URINE 0.2 E.U./dL (0.2-1.0)
[2025-09-13 11:34] LABS: SQUAMOUS EPITHELIAL CELL URINE 2+ /lpf (RARE/1+); WBC URINE 0-2 /hpf (0-2)
[2025-09-13 11:36] LABS: RBC URINE NONE SEEN /hpf (0-2)
[2025-09-13 11:39] LABS: BACTERIA URINE TRACE
[2025-09-13] MEDS: ACETAMINOPHEN 325MG TABLET PO ONE (13:09)
[2025-09-13] MEDS ORDERED: TOPUD PO (13:19)
[2025-09-13 13:40] VITALS: BP 140/78; PULSE 68; RESP 18; TEMP 36.7; O2SAT 100
== END 2025-09-13 13:40 | disposition home or self-care (01) ==
LOC: ER 10:56
DX: R10.A2 Flank pain, left side (principal); E11.9 Type 2 diabetes mellitus without complications; I10 Essential (primary) hypertension; Z79.51 Long term (current) use of inhaled steroids; Z79.82 Long term (current) use of aspirin; Z79.84 Long term (current) use of oral hypoglycemic drugs; Z79.899 Other long term (current) drug therapy; Z88.0 Allergy status to penicillin
CPT/HCPCS: 71101; 81003; 99284